=== PATIENT | female | born 1970 | race Caucasian/White ===

== ENCOUNTER 2022-05-28 11:39 | Emergency (ER) | payer OTHER ==
[2022-05-28 12:32] VITALS: BP 138/92; PULSE 96; RESP 20; TEMP 98; BMI 27.4
[2022-05-28] MEDS ORDERED: METOCLOPRAMIDE HCL INJECTION 10 MG/2 ML VIAL IVPUSH ONE (13:41)
[2022-05-28] MEDS ORDERED: LACTATED RINGERS SOLUTION 1000 ML INFUS.BAG IV ONE (13:41)
[2022-05-28] MEDS ORDERED: METOCLOPRAMIDE HCL INJECTION 10 MG/2 ML VIAL ONE (14:17)
[2022-05-28 14:59] LABS: BASO % 0.6 % (0-2.0); EOS % 0.2 % (0-4.5); HEMOGLOBIN 13.1 GM/dL (10.7-15.3); LYMPH % 7.5 % (8-40); MCH 26.4 pg (25.7-33.7); MCHC 31.9 g/dl (32.0-36.0); MEAN PLT VOLUME 8.6 fl (7.5-11.1); MONO % 2.9 % (3.8-10.2); NEUT % 88.8 % (42.8-82.8); PLATELET COUNT 294 10^3/uL (134-434); RBC 4.94 M/mm3 (3.60-5.2); RDW 14.4 % (11.6-15.6); WHITE BLOOD COUNT 10.7 K/mm3 (4.0-10.0)
[2022-05-28 15:09] LABS: CALCIUM 8.9 mg/dL (8.5-10.1)
[2022-05-28 15:10] LABS: ALBUMIN 3.8 g/dl (3.4-5.0)
[2022-05-28 15:13] LABS: CREATININE 0.7 mg/dL (0.55-1.3)
[2022-05-28 15:15] LABS: BILIRUBIN,TOTAL 0.2 mg/dL (0.2-1)
== END 2022-05-28 15:43 | disposition home or self-care (01) ==
LOC: JER 11:39
PROC: 3E033GC Introduction of Other Therapeutic Substance into Peripheral Vein, Percutaneous Approach (ICD-10-PCS; principal; 2022-05-28)
DX: R42 Dizziness and giddiness (principal)
CPT/HCPCS: 0241U-QW; 36415; 80053; 83690; 83735; 84703; 85025; 99284-25